=== PATIENT | male | born 1960 | race Caucasian/White ===

== ENCOUNTER 2021-05-31 13:19 | Emergency (ER) | payer OTHER ==
[~2021-05-31] VITALS: Ht 175.3 cm; Wt 83.9 kg
[2021-05-31] MEDS ORDERED: SYNTHROID75 MCG PO (13:48)
== END 2021-05-31 18:55 | disposition home or self-care (01) ==
LOC: ER 13:19
DX: N20.0 Calculus of kidney (principal); R10.32 Left lower quadrant pain